=== PATIENT | male | born 1995 | race Caucasian/White ===

== ENCOUNTER 2017-06-08 10:21 | Emergency (ER) | payer SELFPAY ==
[~2017-06-08] VITALS: Ht 188 cm; Wt 108.9 kg
[~2017-06-08 10:21] MED LIST: ALBU90I INH; ALBU90OI INH; AZIT250 PO; CRUTCH2 USE; CRUTCH4 USE; HYDACE5 PO; HYDACE5325 PO; PROCODE120 PO; Pepcid20 MG PO; Prednisone10 MG PO; Tamiflu75 MG PO; Zofran Odt4 MG PO
[2017-06-08] MEDS ORDERED: Zofran Odt4 MG SL (11:06)
== END 2017-06-08 11:10 | disposition home or self-care (01) ==
LOC: ER 10:21
DX: K52.9 Noninfective gastroenteritis and colitis, unspecified (principal); Z88.0 Allergy status to penicillin
CPT/HCPCS: 99282